=== PATIENT | male | born 1955 | race African-American/Black ===

== ENCOUNTER 2019-11-17 11:26 | Inpatient (IN) ==
[2019-11-17] MEDS ORDERED: NS 1,000 ML IV ONE ×4 (12:11→14:16)
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
[2019-11-17 12:51] LABS: BASO# 0.01 X1000 (0.0-0.2); BASO% 0.1 % (0.0-0.8); EOS# 0.05 X1000 (0.0-0.7); EOS% 0.6 % (0.0-10.0); HEMATOCRIT 34.6 % (42.0-52.0); HEMOGLOBIN 11.5 g/dL (14.0-18.0); IMM GRAN# 0.04 X1000 (0.0-0.04); IMM GRAN% 0.5 % (0.0-0.5); LYMPH% 5.7 % (20.5-51.1); MCH 30.7 PG (27-31); MCHC 33.2 g/dL (33-37); MCV 92.3 FL (81-99); MONO# 1.07 X1000 (0.11-0.59); MONO% 12.2 % (1.7-9.3); NEUT# 7.07 X1000 (1.4-6.5); NEUT% 80.9 % (42.2-75.2); PLT 405 X1000 (130-400); RBC 3.75 XMIL (4.7-6.1); RDW 13.9 % (11.5-14.5); WBC 8.74 X1000 (4.8-10.8)
[2019-11-17 13:07] LABS: INR 1.14; PROTIME 15.2 Seconds (11.0-16.0); PTT 40.7 Seconds (22.3-41.8)
--- NOTE | 2019-11-17 13:13 | Diag Imaging Result Doc PS360 ---
EXAM: CHEST-2 VIEWS - 11/17/2019 HISTORY: hypotension, AMS TECHNIQUE: Chest two views COMPARISON: 10/02/2019 FINDINGS: Heart size is normal. Inspiration is mildly shallow on the AP view is moderately shallow on the lateral view. There is some basilar subsegmental atelectasis associated with the shallow inspiration. There is no dense consolidation, vascular congestion, pleural effusion, or pneumothorax identified. IMPRESSION: Somewhat shallow inspiration with associated basilar subsegmental atelectasis. No discrete pneumonia or pulmonary edema. Electronically signed by Ryan Dia 11/17/2019 1:10 PM
[2019-11-17 13:21] LABS: ALBUMIN 3.2 g/dL (3.5-5.0); CALCIUM 8.5 mg/dL (8.8-10.2); CREATININE 1.4 mg/dL (0.7-1.2); POTASSIUM 4.2 mmol/L (3.5-5.1); TOTAL BILIRUBIN 0.3 mg/dL (0.20-1.00); TOTAL PROTEIN 6.2 g/dL (6.3-8.3)
[2019-11-17 13:49] LABS: FREE T4 1.18 ng/dL (0.93-1.70); TSH 0.69 uIUmL (0.27-4.20)
--- NOTE | 2019-11-17 13:52 | Diag Imaging Result Doc PS360 ---
EXAM: CT HEAD/C-SPINE W/O CONTRAST - 11/17/2019 HISTORY: AMS< head injury, frequent falls TECHNIQUE: CT head/cervical spine without contrast COMPARISON: 10/02/2019 CT head FINDINGS: There is no evidence of intracranial hemorrhage, mass effect, midline shift, or hydrocephalus. There is no evidence of infarct, although acute infarcts may not be immediately visible. There is no evidence of skull fracture. There is a metallic skin stable over the right vertex which presumably relates to soft tissue laceration. Visualized portions of paranasal sinuses and mastoid air cells appear clear except for some mild paranasal sinus mucosal thickening. CT cervical spine: There is multilevel degenerative disease. There is associated multilevel moderate spinal stenosis as well as neural foraminal stenosis. There is no fracture, subluxation, or precervical soft tissue swelling identified. IMPRESSION: CT head: No visible acute intracranial abnormality. No evidence of intracranial injury. CT cervical spine: Multilevel degenerative disease, with multilevel moderate spinal stenosis and neural foraminal stenosis. No evidence of fracture or subluxation. This exam was performed using automated exposure control, adjustment of mA or kV according to patient size, and/or use of iterative reconstruction technique. Electronically signed by Ryan Dia 11/17/2019 1:50 PM
[2019-11-17 14:01] LABS: URINE SOURCE CATH
[2019-11-17 14:03] LABS: BILIRUBIN URINE NEGATIVE (NEGATIVE); BLOOD URINE NEGATIVE (NEGATIVE); COLOR YELLOW; GLUCOSE URINE NEGATIVE (NEGATIVE); KETONE URINE TRACE mg/dL (NEGATIVE); LEUKOCYTES URINE NEGATIVE (NEGATIVE); NITRITE URINE NEGATIVE (NEGATIVE); PROTEIN URINE TRACE mg/dL (NEGATIVE); SP GRAVITY URINE 1.019; TURBIDITY URINE CLEAR (CLEAR); UROBILINOGEN URINE NORMAL (NORMAL)
[2019-11-17 14:05] LABS: UR EPITHELIAL CELLS <10 /HPF (<10); URINE BACTERIA NEGATIVE /HPF; URINE RBC <10 /HPF (<10); URINE WBC <10 /HPF (<10)
[2019-11-17 14:28] LABS: UR AMPHETAMINES QUAL NONE DETECTED (NONE DETECT); UR BARBITUATES QUAL NONE DETECTED (NONE DETECT); UR BENZODIAZEPIN QUAL NONE DETECTED (NONE DETECT); UR CANNABINOIDS QUAL NONE DETECTED (NONE DETECT); UR COCAINE QUAL NONE DETECTED (NONE DETECT); UR METHADONE QUAL NONE DETECTED (NONE DETECT); UR METHAMPHETAMINE QUAL NONE DETECTED (NONE DETECT); UR OPIATES QUAL NONE DETECTED (NONE DETECT); UR OXYCODONE QUAL NONE DETECTED (NONE DETECT); UR PCP QUAL PRESUMPTIVE POSITIVE (NONE DETECT); UR PROPOXYPHENE QUAL NONE DETECTED (NONE DETECT); UR TCA QUAL NONE DETECTED (NONE DETECT)
[2019-11-17] MEDS ORDERED: ZOFRAN IV PRN (15:40)
[2019-11-17] MEDS ORDERED: TYLENOL PO PRN (15:40)
[2019-11-17] MEDS ORDERED: NS 1,000 ML IV SCH (15:45)
[2019-11-17] MEDS: ROCEPHIN 1 GM in NS 50 ML IV SCH (16:55)
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
[2019-11-17] MEDS: NICODERM PATCH TD SCH (18:30)
[2019-11-17] MEDS ORDERED: PNEUMOVAX 23 IM ONE (22:38)
[2019-11-17] MEDS ORDERED: FLU VACCINE IM ONE (22:38)
[2019-11-17] MEDS: PLETAL PO SCH (23:00)
[2019-11-17] MEDS: PATIENT'S OWN MED PO SCH (23:00)
[2019-11-17] MEDS: DEPAKOTE ER PO SCH (23:00)
[2019-11-17] MEDS: COGENTIN PO SCH (23:00)
[2019-11-17] MEDS: MAG-OX PO SCH (23:00)
[2019-11-18 05:50] LABS: HEMATOCRIT 31.9 % (42.0-52.0); HEMOGLOBIN 10.4 g/dL (14.0-18.0); MCH 30.7 PG (27-31); MCHC 32.6 g/dL (33-37); MCV 94.1 FL (81-99); MPV 9.1 FL (7.4-10.4); RBC 3.39 XMIL (4.7-6.1); WBC 9.33 X1000 (4.8-10.8)
[2019-11-18] MEDS: SYNTHROID PO SCH (06:05)
[2019-11-18 06:10] LABS: AGAP 11; ALBUMIN 2.6 g/dL (3.5-5.0); ALKALINE PHOSPHATASE 74 U/L (32-122); BUN 24 mg/dL (8-22); CALCIUM 8.1 mg/dL (8.8-10.2); CHLORIDE 102 mmol/L (98-107); COSMO 285; CREATININE 1.1 mg/dL (0.7-1.2); ESTIMATED GFR > 60; GLUCOSE 102 mg/dL (70-104); GOT 21 U/L (10-34); GPT 14 U/L (10-44); MAGNESIUM 2.1 mg/dL (1.5-2.7); SODIUM 141 mmol/L (136-145); TCO2 28 mmol/L (25-35); TOTAL PROTEIN 6.2 g/dL (6.3-8.3)
[2019-11-18] MEDS: VITAMIN B-12 PO SCH (08:37)
[2019-11-18] MEDS: MAG-OX PO SCH ×2 (08:37→20:19)
[2019-11-18] MEDS: COGENTIN PO SCH ×2 (08:37→20:19)
[2019-11-18] MEDS: PLETAL PO SCH ×2 (08:38→20:19)
[2019-11-18] MEDS: NICODERM PATCH TD SCH (08:38)
[2019-11-18] MEDS: EFFEXOR XR PO SCH (08:38)
[2019-11-18] MEDS: PATIENT'S OWN MED PO SCH ×2 (08:38→23:24)
--- NOTE | 2019-11-18 12:50 | Diag Imaging Result Doc PS360 ---
EXAM: CHEST-PORTABLE INDICATION: dyspnea TECHNIQUE: One view COMPARISON: 11/17/2019 FINDINGS: Inspiration is suboptimal. Mild basilar subsegmental atelectasis is similar to the previous study. No new consolidation is identified. Cardiac silhouette is stable. IMPRESSION: Lower lung volumes. Essentially stable chest, otherwise. Electronically signed by Tio Box 11/18/2019 12:47 PM
--- NOTE | 2019-11-18 13:12 | PROGRESS NOTE ---
DATE: 11/18/2019 SUBJECTIVE: Patient has no complaints, states he is feeling better. PHYSICAL EXAM: Vital signs: Temperature 99, pulse 87, respiratory rate 20, BP 120/80, sat 92% on 3 L. Previously was 85% on room air. I do not believe he is on oxygen at home. HEENT: Normocephalic. Neck: Supple. Cardiovascular: Regular rate. Chest: Clear. Abdomen: Soft. Extremities: Moves all extremities. ASSESSMENT: 1. Acute hypoxic respiratory failure. We are going to attempt to wean him off oxygen. Volume depletion. 2. Hypotension. 3. Schizophrenia. 4. Acute renal insufficiency, appears resolved. The patient overall has improved. He appears back to his baseline mental status. He ate a full breakfast. We are going to attempt to wean him off oxygen. Given that he lives in a intermediate, we need to watch him for 24 hours off oxygen before discharging. We will continue to follow. We will saline lock. Further orders as needed. cc: Fahad Powell MD
[2019-11-18] MEDS: ROCEPHIN 1 GM in NS 50 ML IV SCH (15:56)
[2019-11-18] MEDS: DEPAKOTE ER PO SCH (20:19)
[2019-11-19] MEDS: SYNTHROID PO SCH (06:06)
[2019-11-19] MEDS: PLETAL PO SCH ×2 (08:46→20:49)
[2019-11-19] MEDS: COGENTIN PO SCH ×2 (08:46→20:48)
[2019-11-19] MEDS: VITAMIN B-12 PO SCH (08:46)
[2019-11-19] MEDS: EFFEXOR XR PO SCH (08:47)
[2019-11-19] MEDS: MAG-OX PO SCH ×2 (08:47→20:48)
[2019-11-19] MEDS: NICODERM PATCH TD SCH (08:47)
[2019-11-19] MEDS: PATIENT'S OWN MED PO SCH ×2 (08:52→23:56)
[2019-11-19 11:32] LABS: BASO# 0.02 X1000 (0.0-0.2); BASO% 0.3 % (0.0-0.8); EOS% 2.6 % (0.0-10.0); HEMATOCRIT 33.7 % (42.0-52.0); HEMOGLOBIN 10.7 g/dL (14.0-18.0); IMM GRAN# 0.04 X1000 (0.0-0.04); IMM GRAN% 0.5 % (0.0-0.5); LYMPH# 1.01 X1000 (1.2-3.4); LYMPH% 13.3 % (20.5-51.1); MCH 30.1 PG (27-31); MCHC 31.8 g/dL (33-37); MCV 94.7 FL (81-99); MONO# 0.89 X1000 (0.11-0.59); MONO% 11.7 % (1.7-9.3); MPV 8.3 FL (7.4-10.4); NEUT# 5.42 X1000 (1.4-6.5); NEUT% 71.6 % (42.2-75.2); PLT 369 X1000 (130-400); RBC 3.56 XMIL (4.7-6.1); RDW 14.2 % (11.5-14.5); WBC 7.58 X1000 (4.8-10.8)
--- NOTE | 2019-11-19 11:36 | PROGRESS NOTE ---
DATE: 11/19/2019 SUBJECTIVE: The patient reports feeling fine. No complaints at this time. OBJECTIVE: Vital Signs: Temperature 98.8 degrees, heart rate 81, respiratory rate 18, blood pressure 113/77, O2 saturation 92% on 1 L nasal cannula. General Examination: This is a 64-year- old, male, lying in bed, in no acute distress. Cardiovascular Examination: S1 and S2 heard. No murmurs, gallops, or rubs. Regular rate and rhythm. Respiratory Examination: Clear bilaterally to auscultation. No work of breathing or using accessory muscles. Abdomen: Soft, nontender to palpation. Bowel sounds present. No organomegaly. Extremities: No clubbing, cyanosis, or edema. Peripheral pulses present in both legs. Neurological Examination: The patient is awake. His speech is not coherent. Apparently has history of schizophrenia. Moves 4 extremities. Laboratory Data: Pending at the time of my dictation. ASSESSMENT AND PLAN: 1. Acute hypoxemic respiratory failure. We do not know if this patient used oxygen at home or not. There are no members from the shelter here in the hospital at bedside. Currently, he is receiving 1 L of oxygen by nasal cannula. We will do home oxygen evaluation to see if he requires oxygen or not. 2. Hypotension. That has resolved with intravenous fluids. Now, the blood pressure is okay. 3. Schizophrenia. We will continue home medications. 4. Acute renal insufficiency, resolved. 5. Disposition. At this point, we will check if we can stop oxygen today and tomorrow, he should go back to his shelter. cc: Samy Barr MD
[2019-11-19 11:48] LABS: AGAP 9; ALBUMIN 2.8 g/dL (3.5-5.0); BUN 15 mg/dL (8-22); CALCIUM 8.3 mg/dL (8.8-10.2); CHLORIDE 99 mmol/L (98-107); COSMO 277; CREATININE 0.8 mg/dL (0.7-1.2); ESTIMATED GFR > 60; GLUCOSE 111 mg/dL (70-104); PHOSPHORUS 1.8 mg/dL (2.7-4.5); POTASSIUM 4.1 mmol/L (3.5-5.1); SODIUM 138 mmol/L (136-145); TCO2 30 mmol/L (25-35)
[2019-11-19] MEDS: ROCEPHIN 1 GM in NS 50 ML IV SCH (16:32)
[2019-11-19] MEDS: DEPAKOTE ER PO SCH (20:48)
[2019-11-20] MEDS: SYNTHROID PO SCH (06:06)
[2019-11-20 06:09] LABS: AGAP 11; ALBUMIN 2.7 g/dL (3.5-5.0); BUN 14 mg/dL (8-22); CALCIUM 8.2 mg/dL (8.8-10.2); CHLORIDE 100 mmol/L (98-107); COSMO 273; CREATININE 0.9 mg/dL (0.7-1.2); ESTIMATED GFR > 60; GLUCOSE 81 mg/dL (70-104); POTASSIUM 4.3 mmol/L (3.5-5.1); SODIUM 137 mmol/L (136-145); TCO2 27 mmol/L (25-35)
[2019-11-20 06:19] LABS: BASO# 0.04 X1000 (0.0-0.2); BASO% 0.5 % (0.0-0.8); EOS# 0.16 X1000 (0.0-0.7); EOS% 2.1 % (0.0-10.0); HEMATOCRIT 30.9 % (42.0-52.0); HEMOGLOBIN 9.9 g/dL (14.0-18.0); IMM GRAN# 0.03 X1000 (0.0-0.04); IMM GRAN% 0.4 % (0.0-0.5); LYMPH# 1.17 X1000 (1.2-3.4); LYMPH% 15.3 % (20.5-51.1); MCH 30.4 PG (27-31); MCV 94.8 FL (81-99); MONO# 1.06 X1000 (0.11-0.59); MONO% 13.9 % (1.7-9.3); MPV 9.2 FL (7.4-10.4); NEUT# 5.19 X1000 (1.4-6.5); NEUT% 67.8 % (42.2-75.2); PLT 341 X1000 (130-400); RBC 3.26 XMIL (4.7-6.1); WBC 7.65 X1000 (4.8-10.8)
[2019-11-20 08:09] VITALS: BP 134/78
[2019-11-20] MEDS: COGENTIN PO SCH (08:30)
[2019-11-20] MEDS: EFFEXOR XR PO SCH (08:30)
[2019-11-20] MEDS: VITAMIN B-12 PO SCH (08:30)
[2019-11-20] MEDS: MAG-OX PO SCH (08:30)
[2019-11-20] MEDS: PLETAL PO SCH (08:30)
[2019-11-20] MEDS: NICODERM PATCH TD SCH (08:31)
[2019-11-20] MEDS: PATIENT'S OWN MED PO SCH (08:31)
--- NOTE | 2019-11-20 16:28 | DISCHARGE SUMMARY ---
DISCHARGE DIAGNOSES: 1. Volume depletion resolved. 2. Acute renal failure completely resolved. 3. Metabolic encephalopathy, uncertain etiology, resolved. 4. Schizophrenia. 5. Hypotension resolved. PROCEDURES: 1. Chest x-ray done on admission showed shallow inspiration, associated basilar subsegmental atelectasis but no discrete pneumonia or pulmonary edema. 2. Head and cervical spine CT showed no visible acute intracranial abnormality. HOSPITAL COURSE: This is a 64-year-old male, who lives in a longterm in [place] who was taken to [facility] 2 weeks ago. He was brought to the emergency department basically because of altered mental status and hypotension. The reason for that condition was uncertain. We started IV fluids and he was requiring also supplemental oxygen but he was getting better. Day of admission he was completely alert and awake. He was not requiring any oxygen supplementation. His blood pressure was about 120-130s. As per longterm request today they asked us to do psych screening, so we consulted [facility] to see there is any suggestion for management of this patient for schizophrenia but they cleared this patient. According to them, he is good to go back to his longterm. The patient is going to be discharged in stable condition. DISCHARGE PHYSICAL EXAMINATION: Vital Signs: Temperature 98.1 degrees, heart rate 66, respiratory rate 16, blood pressure 134/78, O2 saturation 95% on room air. General: This is a 64- year-old, male, lying in bed, in no acute distress. Cardiovascular: S1, S2 heard. No murmurs, gallops, or rubs. Regular rate and rhythm. Respiratory: Clear bilaterally to auscultation. No work of breathing or use of accessory muscles. Abdomen: Soft, nontender to palpation. Bowel sounds present. No organomegaly. Extremities: No clubbing, cyanosis, or edema. Peripheral pulses present in both legs. Neurological: The patient alert and oriented x3. Moves 4 extremities. DISCHARGE DISPOSITION: Patient is going back to longterm. RECENT MEDICATIONS: We are not going to make any changes to her current medications. TIME DISCHARGING THIS PATIENT: 33 minutes. cc: Samy Barr MD
== END 2019-11-20 14:55 | disposition home or self-care (01) | DRG 682 ==
LOC: P.ED 11:26 → P.EDIPHOLD 18:12 → SUATTDRO 21:22
PROVIDERS: ATTEND Internal Medicine